=== PATIENT | female | born 1975 | race Caucasian/White ===

== ENCOUNTER 2018-10-08 13:02 | Emergency (ER) | payer BC ==
[2018-10-08 13:46] LABS: Absolute Lymphocytes (CBC) 2.3 K/uL (0.7-4.9); Absolute Monocytes 0.4 K/uL (0.1-1.3); Absolute Neutrophil 4.3 K/uL (1.8-8.0); Basophils % 0.7 % (0-1.3); Eosinophils % 1.9 % (0-4.4); Hematocrit 38.4 % (36.0-45.0); Lymphocytes % 31.7 % (15.3-44.8); MCH 29.3 pg (27.0-35.0); MCV 85.7 fL (80-100); Monocytes % 5.1 % (3.3-12.3); RBC Red Blood Cell Count 4.49 M/uL (3.86-4.86)
[2018-10-08] MEDS ORDERED: NA CHLORIDE 0.9% 1,000 ML ONE (13:47)
--- NOTE | 2018-10-08 13:47 | RAD REPORT ---
EXAM DESCRIPTION: CT - Head Brain Wo Cont - 10/08/2018 1:38 pm CLINICAL HISTORY: CONFUSED Drowsiness COMPARISON: No comparisons TECHNIQUE: All CT scans are performed using dose optimization technique as appropriate and may inclu de automated exposure control or mA/KV adjustment according to patient size. FINDINGS: No intracranial hemorrhage, hydrocephalus or extra-axial fluid collection.No areas of brai n edema or evidence of midline shift. The paranasal sinuses and mastoids are clear. The calvarium is intact. IMPRESSION: No acute intracranial abnormality.
[2018-10-08 13:58] LABS: ALT/SGPT 24 U/L (12-78); AST/SGOT 14 U/L (15-37); Albumin 3.6 g/dL (3.4-5.0); Alkaline Phosphatase 72 U/L (45-117); BUN Blood Urea Nitrogen 10 mg/dL (7-18); Bicarbonate 29 mmol/L (21-32); Bilirubin Direct < 0.1 mg/dL (0-0.2); Bilirubin Total 0.2 mg/dL (0.2-1.0); Creatine Phosphokinase 73 U/L (26-192); Glucose Level 97 mg/dL (74-106); Potassium 3.9 mmol/L (3.5-5.1); Protein, Total 6.6 g/dL (6.4-8.2); Sodium Level 144 mmol/L (136-145)
[2018-10-08 14:18] LABS: Blood Gas Oxyhemoglobin 95.9 % (94-97); Blood O2 Saturation 97.6 % (92-98.5)
[2018-10-08 14:41] LABS: Barbiturates NEGATIVE (NEGATIVE); Benzodiazepines NEGATIVE (NEGATIVE); Cocaine NEGATIVE (NEGATIVE); METHAMPHETAM NEGATIVE (NEGATIVE); Methadone NEGATIVE (NEGATIVE); Opiates NEGATIVE (NEGATIVE); Phencyclidine NEGATIVE (NEGATIVE); THC Cannibis NEGATIVE (NEGATIVE)
[2018-10-08 14:49] LABS: Urine Bacteria NONE SEEN /HPF (<20); Urine RBC NONE SEEN /HPF (NONE SEEN)
[2018-10-08 14:50] LABS: Urine Culture Reflex Order NOT NEEDED
[2018-10-08 14:56] LABS: Urine Blood TRACE (NEG); Urine Glucose NEGATIVE (NEG); Urine Protein 1+ (NEG); Urine Specific Gravity 1.015 (1.005-1.030); Urine pH 8.5 (5.0-7.0)
--- NOTE | 2018-10-08 15:49 | EDPHYS ---
Physician Documentation [facility] Name: February Age: 43 yrs Sex: Female : 1975 Arrival Date: 10/08/2018 Time: 13:04 Bed 26 Private MD: None, None ED Physician Andrae Edwards HPI: 10/08 17:04 This 43 yrs old Female presents to ER via Wheelchair with complaints of snw Diabetic, Altered Mental Status. 17:04 The patient presents with confusion, decreased responsiveness, trouble concentrating. snw Onset: The symptoms/episode began/occurred suddenly, just prior to arrival. Possible causes: low blood sugar, has "trouble with low blood sugar". Associated signs and symptoms: Pertinent positives: ataxia, confusion, gait abnormality, lightheadedness, weakness. Current symptoms: In the emergency department the patient's symptoms have resolved, the patient is alert and fully oriented, has normal speech, has normal responsiveness. Patient's baseline: Neuro: alert and fully oriented, Motor: no deficits, Ambulation: walks without assistance. The patient has experienced similar episodes in the past. The patient has not recently seen a physician. recent move to [facility], no family, no friends, no PCP yet.. 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 - Ebola Screening: : Patient negative for fever greater than or equal to 101.5 degrees Fahrenheit, and additional compatible Ebola Virus Disease symptoms Patient denies exposure to infectious person Patient denies travel to an Ebola-affected area in the 21 days before illness onset No symptoms or risks identified at this time. - Social history:: Smoking status: Patient/guardian denies using tobacco. ROS: 17:04 Eyes: Negative for injury, pain, redness, and discharge, ENT: Negative for injury, snw pain, and discharge, Neck: Negative for injury, pain, and swelling, Cardiovascular: Negative for chest pain, palpitations, and edema, Respiratory: Negative for shortness of breath, cough, wheezing, and pleuritic chest pain, Abdomen/GI: Negative for abdominal pain, nausea, vomiting, diarrhea, and constipation, Back: Negative for injury and pain, : Negative for injury, bleeding, discharge, and swelling, MS/Extremity: Negative for injury and deformity, Skin: Negative for injury, rash, and discoloration. 17:04 Constitutional: Positive for body aches, fatigue, malaise, poor PO intake. 17:04 Neuro: Positive for altered mental status, gait disturbance, weakness. Exam: 16:59 Head/Face: Normocephalic, atraumatic. Eyes: Pupils equal round and reactive to light, snw extra-ocular motions intact. Lids and lashes normal. Conjunctiva and sclera are non-icteric and not injected. Cornea within normal limits. Periorbital areas with no swelling, redness, or edema. ENT: Nares patent. No nasal discharge, no septal abnormalities noted. Tympanic membranes are normal and external auditory canals are clear. Oropharynx with no redness, swelling, or masses, exudates, or evidence of obstruction, uvula midline. Mucous membranes moist. Neck: Trachea midline, no thyromegaly or masses palpated, and no cervical lymphadenopathy. Supple, full range of motion without nuchal rigidity, or vertebral point tenderness. No Meningismus. Chest/axilla: Normal chest wall appearance and motion. Nontender with no deformity. No lesions are appreciated. Cardiovascular: Regular rate and rhythm with a normal S1 and S2. No gallops, murmurs, or rubs. Normal PMI, no JVD. No pulse deficits. Respiratory: Lungs have equal breath sounds bilaterally, clear to auscultation and percussion. No rales, rhonchi or wheezes noted. No increased work of breathing, no retractions or nasal flaring. Abdomen/GI: Soft, non-tender, with normal bowel sounds. No distension or tympany. No guarding or rebound. No evidence of tenderness throughout. Back: No spinal tenderness. No costovertebral tenderness. Full range of motion. Skin: Warm, dry with normal turgor. Normal color with no rashes, no lesions, and no evidence of cellulitis. MS/ Extremity: Pulses equal, no cyanosis. Neurovascular intact. Full, normal range of motion. 16:59 Constitutional: The patient appears awake, anxious, listless, unkempt. 16:59 Neuro: Orientation: to person, Gait: needs assistance, w/c, seizure activity, is not displayed by the patient, Abnormal movements: there are no abnormal movements. 16:59 Special observations: Pt with IVF, calm environment, began to answer questions, oriented x 3, states she has had similar episodes in the past, feels this was a panic attack. Pt denies SI, HI. Calm, cooperative. Pt states she is safe at home and is feeling back to normal.. Vital Signs: 13:32 BP 153 / 87; Pulse 56; Resp 14 S; Temp 97.8(O); Pulse Ox 97% on R/A; Weight 83.91 kg; iw Height 5 ft. 7 in. (170.18 cm); Pain 0/10; 14:10 BP 158 / 96; Pulse 63; Resp 16 S; Pulse Ox 100% on R/A; Pain 0/10; iw 15:39 BP 158 / 98; Pulse 64; Resp 16; Pulse Ox 100% on R/A; Pain 0/10; iw 13:32 Body Mass Index 28.97 (83.91 kg, 170.18 cm) iw [place] Coma Score: 16:59 Eye Response: spontaneous(4). Verbal Response: oriented(5). Motor Response: obeys snw commands(6). Total: 15. MDM: 13:33 Patient medically screened. ailyn 17:03 Data reviewed: vital signs, nurses notes. Data interpreted: Pulse oximetry: on room air snw is 100 %. Interpretation: normal. Counseling: I had a detailed discussion with the patient and/or guardian regarding: the historical points, exam findings, and any diagnostic results supporting the discharge/admit diagnosis, the presence of at least one elevated blood pressure reading (>120/80) during this emergency department visit, lab results, radiology results, the need for outpatient follow up, to return to the emergency department if symptoms worsen or persist or if there are any questions or concerns that arise at home. Response to treatment: the patient's symptoms have resolved after treatment, and as a result, I will discharge patient. Special discussion: Based on the history and exam findings, there is no indication for further emergent testing or inpatient evaluation. I discussed with the patient/guardian the need to see the primary care provider for further evaluation of the symptoms. I discussed with the patient/guardian the need to see the psychiatrist for further evaluation of the symptoms. 10/08 13:27 Order name: ABG [facility] 10/08 13:27 Order name: Urine Drug Screen; Complete Time: 14:51 w 10/08 13:27 Order name: Urine Culture [facility] 10/08 13:27 Order name: Urine Microscopic Only; Complete Time: 14:51 [facility] 10/08 13:27 Order name: Basic Metabolic Panel; Complete Time: 14:10 [facility] 10/08 13:27 Order name: CBC with Diff; Complete Time: 13:53 w 10/08 13:27 Order name: CPK; Complete Time: 14:10 w 10/08 13:27 Order name: Lactate; Complete Time: 15:47 [facility] 10/08 13:27 Order name: LFT's; Complete Time: 14:10 [facility] 10/08 13:27 Order name: Procalcitonin; Complete Time: 14:51 [facility] 10/08 13:31 Order name: Osmolality, Serum; Complete Time: 15:47 [facility] 10/08 14:42 Order name: Urine Dipstick--Ancillary (enter results); Complete Time: 14:57 10/08 14:42 Order name: Urine --Ancillary (enter results); Complete Time: 14:57 10/08 13:27 Order name: Cath; Complete Time: 14:11 [facility] 10/08 13:27 Order name: Urine Test (obtain specimen); Complete Time: 14:11 [facility] 10/08 13:27 Order name: Urine Dipstick-Ancillary (obtain specimen); Complete Time: 14:11 [facility] 10/08 13:27 Order name: CT Head Brain wo Cont; Complete Time: 13:52 [facility] 10/08 13:27 Order name: Accucheck; Complete Time: 13:38 [facility] 10/08 13:27 Order name: Cardiac monitoring; Complete Time: 14:11 [facility] 10/08 13:27 Order name: EKG - Nurse/Tech; Complete Time: 14:32 [facility] 10/08 13:27 Order name: IV Saline Lock - Large Bore; Complete Time: 13:51 [facility] 10/08 13:27 Order name: Labs collected and sent; Complete Time: 13:51 [facility] 10/08 13:27 Order name: O2 Per Protocol; Complete Time: 13:51 snw 10/08 13:27 Order name: O2 Sat Monitoring; Complete Time: 13:51 snw 10/08 14:34 Order name: Labs - recollect needed; Complete Time: 15:13 bd 10/08 15:01 Order name: EKG Electrocardiogram EDMS Administered Medications: 14:17 Drug: NS 0.9% (30 ml/kg) 30 ml/kg Route: IV; Rate: bolus; Site: right antecubital; Point of Care Testing: Blood Glucose: 13:32 Blood Glucose: 97 mg/dL; iw Ranges: Critical Glucose Levels:Adult <50 mg/dl or >400 mg/dl <40 mg/dl or >180 mg/dl Disposition: 10/08/18 15:48 Discharged to Home. Impression: Altered mental status, unspecified, Panic disorder [episodic paroxysmal anxiety] without agoraphobia. - Condition is Stable. - Discharge Instructions: Panic Attacks, Stress and Stress Management, Generalized Anxiety Disorder. - Medication Reconciliation Form, Thank You Letter, Antibiotic Education, Prescription Opioid Use form. - Follow up: Private Physician; When: 1 week; Reason: Recheck today's complaints, Continuance of care, Re-evaluation by your physician. Follow up: Emergency Department; When: As needed; Reason: Worsening of condition. Addendum: 10/13/2018 06:23 Co-signature as Attending Physician, Andrae Edwards MD I agree with the assessment and c davey plan of care. PA/ANESTHESIOLOGY CRNA's history reviewed, patient interviewed, and examined. Signatures: Dispatcher [employer] EDLexii Russell Corey, MD MD cha Therrien, Shelly, PARK SERVICES SPECIALIST-C PARK SERVICES SPECIALIST-Csnw Soraida Astudillo, RN RN iw Corrections: (The following items were deleted from the chart) 10/08 15:04 13:32 Home Meds: None; iw iw 15:04 13:32 PMHx: None; iw iw 16:09 15:48 10/08/2018 15:48 Discharged to Home. Impression: Altered mental status, iw unspecified; Panic disorder [episodic paroxysmal anxiety] without agoraphobia. Condition is Stable. Forms are Medication Reconciliation Form, Thank You Letter, Antibiotic Education, Prescription Opioid Use. Follow up: Private Physician; When: 1 week; Reason: Recheck today's complaints, Continuance of care, Re-evaluation by your physician. Follow up: Emergency Department; When: As needed; Reason: Worsening of condition. snw
--- NOTE | 2018-10-08 15:49 | ER ---
Nurse's Notes [facility] Name: Lisa Dinh Age: 43 yrs Sex: Female : 1975 Arrival Date: 10/08/2018 Time: 13:04 Bed 26 Private MD: None, None Diagnosis: Altered mental status, unspecified;Panic disorder [episodic paroxysmal anxiety] without agoraphobia Presentation: 10/08 13:27 Presenting complaint: states: pt has had episodes of AMS, last episode was 3-4 iw months ago, pt was diagnosed with diabetes and was placed on metformin at that time but has been off for 2 months because it was making her BS fluctuate too much, pt went and ran errands this morning and when she came back home she was very drowsy and not acting like her normal self, denies ETH or drug use, FS=97, pt oriented to person and place. Transition of care: patient was not received from another setting of care. Onset of symptoms was October 08, 2018. Risk Assessment: Do you want to hurt yourself or someone else? Patient reports no desire to harm self or others. Initial Sepsis Screen: Does the patient meet any 2 criteria? No. Patient's initial sepsis screen is negative. Does the patient have a suspected source of infection? No. Patient's initial sepsis screen is negative. Care prior to arrival: None. 13:27 Method Of Arrival: Wheelchair iw 13:27 Acuity: CAROL 2 iw Triage Assessment: 16:00 General: Appears in no apparent distress. iw 16:00 General: Behavior is calm, cooperative. 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 - Ebola Screening: : Patient negative for fever greater than or equal to 101.5 degrees Fahrenheit, and additional compatible Ebola Virus Disease symptoms Patient denies exposure to infectious person Patient denies travel to an Ebola-affected area in the 21 days before illness onset No symptoms or risks identified at this time. - Social history:: Smoking status: Patient/guardian denies using tobacco. Screenin:13 Abuse screen: Denies threats or abuse. Denies injuries from another. Nutritional iw screening: No deficits noted. Tuberculosis screening: No symptoms or risk factors identified. Fall Risk IV access (20 points). Assessment: 13:50 General: Appears well developed, Behavior is drowsy. Pain: Denies pain. Neuro: Oriented iw to person, place, Mock Up Builder are weak bilaterally Moves all extremities. Speech is slurred, Facial symmetry appears normal. Cardiovascular: Capillary refill < 3 seconds in bilateral fingers Patient's skin is warm and dry. Respiratory: Respiratory effort is even, unlabored, Respiratory pattern is regular, symmetrical. Derm: Skin is intact, is healthy with good turgor. Musculoskeletal: Range of motion: intact in all extremities. 14:12 Reassessment: Patient appears in no apparent distress at this time. pt appears tearful, iw when asked if she is upset about something pt states "No, I'm just upset he brought me here", pt still appears drowsy. 15:01 Reassessment: Patient appears in no apparent distress at this time. Patient and/or iw family updated on plan of care and expected duration. Pain level reassessed. Patient is alert, oriented x 3, equal unlabored respirations, skin warm/dry/pink. pt states that she has a history of anxiety, is currently taking escitalopram daily, has been feeling overwhelmed lately and she feels like she had a panic attack and then couldn't stop the feeling, pt feeling better now but still feels a bit anxious and tearful the more we speak about it Patient states feeling better. Patient states symptoms have improved. 15:38 Reassessment: Patient appears in no apparent distress at this time. Patient and/or iw family updated on plan of care and expected duration. Pain level reassessed. Patient is alert, oriented x 3, equal unlabored respirations, skin warm/dry/pink. Vital Signs: 13:32 BP 153 / 87; Pulse 56; Resp 14 S; Temp 97.8(O); Pulse Ox 97% on R/A; Weight 83.91 kg; iw Height 5 ft. 7 in. (170.18 cm); Pain 0/10; 14:10 BP 158 / 96; Pulse 63; Resp 16 S; Pulse Ox 100% on R/A; Pain 0/10; iw 15:39 BP 158 / 98; Pulse 64; Resp 16; Pulse Ox 100% on R/A; Pain 0/10; iw 13:32 Body Mass Index 28.97 (83.91 kg, 170.18 cm) iw [place] Coma Score: 16:59 Eye Response: spontaneous(4). Verbal Response: oriented(5). Motor Response: obeys snw commands(6). Total: 15. ED Course: 13:04 Patient arrived in ED. mr 13:05 None, None is Private Physician. mr 13:26 Soraida Astudillo, RN is Primary Nurse. iw 13:29 [facility]C [facility]. snw 13:29 Andrae Edwards MD is Attending Physician. snw 13:31 Triage completed. iw 13:32 Arm band placed on. iw 13:33 Inserted saline lock: 20 gauge in right antecubital area, using aseptic technique. iw Blood collected. IV inserted by JOSE Mclean. 13:39 CT Head Brain wo Cont In Process Unspecified. EDMS 13:50 Patient has correct armband on for positive identification. iw 13:50 Straight cath inserted, using sterile technique, 16 Fr. Returned clear yellow urine. iw Patient tolerated well. Inserted saline lock: 22 gauge in left forearm, using aseptic technique. 14:33 EKG done, by hazardous materials waste technician. reviewed by Lisy RIVERA. at1 16:08 No provider procedures requiring assistance completed. IV discontinued, intact, iw bleeding controlled, No redness/swelling at site. Pressure dressing applied. Administered Medications: 14:17 Drug: NS 0.9% (30 ml/kg) 30 ml/kg Route: IV; Rate: bolus; Site: right antecubital; iw Point of Care Testing: Blood Glucose: 13:32 Blood Glucose: 97 mg/dL; iw Ranges: Outcome: 15:48 Discharge ordered by MD. snw 16:08 Discharged to home ambulatory, with family. iw 16:08 Condition: good 16:08 Discharge instructions given to patient, family, Instructed on discharge instructions, follow up and referral plans. Demonstrated understanding of instructions, follow-up care. 16:09 Patient left the ED. iw Signatures: Dispatcher [employer] EDWV Lisy Bhatt FNP-C FNP-Donato TsangKristi Soraida Astudillo RN RN Silvana Turk, lighting engineer EKG Tat1 Corrections: (The following items were deleted from the chart) 14:12 13:32 BP 153 / 87; Pulse 56bpm; Resp 14bpm; Spontaneous; Pulse Ox 97% RA; Temp 97.8F iw Oral; Pain 0/10; iw 15: 13:32 Home Meds: None; iw iw 15: 13:32 PMHx: None; iw iw
--- NOTE | 2018-10-08 20:55 | EKG ---
Test Date: 2018-10-08 Test Time: 14:30:37 Container Washer Machine: BERNARD MEASUREMENT RESULTS: Intervals: Rate: 65 IA: 156 QRSD: 88 QT: 418 QTc: 434 [place]: P: 17 IA: 156 QRS: 5 T: 24 INTERPRETIVE STATEMENTS: Normal sinus rhythm Normal ECG No previous ECG available for comparison Electronically Signed On 10-08-18 20:54:43 [employer]YSTER SHIPPER by Deion Esteves
== END 2018-10-08 16:09 | disposition home or self-care (01) ==
LOC: ER 13:02
DX: F41.0 Panic disorder [episodic paroxysmal anxiety] (principal); F32.9 Major depressive disorder, single episode, unspecified; F41.9 Anxiety disorder, unspecified
CPT/HCPCS: 36415; 51702; 70450; 80048; 80076; 80307; 81003; 81015; 81025; 82550; 82805; 82962; 83605; 83930; 84145; 85025; 87086; 87088; 93005; 96374; 99284; J7030

== ENCOUNTER 2019-02-26 10:29 | Emergency (ER) | payer BC ==
[2019-02-26 11:21] LABS: Absolute Lymphocytes (CBC) 1.4 K/uL (0.7-4.9); Absolute Monocytes 0.2 K/uL (0.1-1.3); Absolute Neutrophil 4.6 K/uL (1.8-8.0); Basophils % 0.6 % (0-1.3); Eosinophils % 1.4 % (0-4.4); Hematocrit 42.9 % (36.0-45.0); Lymphocytes % 22.1 % (15.3-44.8); MPV 8.7 fL (7.6-11.3); RBC Red Blood Cell Count 4.93 M/uL (3.86-4.86)
[2019-02-26 11:41] LABS: ALT/SGPT 28 U/L (12-78); AST/SGOT 18 U/L (15-37); Albumin 3.8 g/dL (3.4-5.0); Alkaline Phosphatase 65 U/L (45-117); BUN Blood Urea Nitrogen 13 mg/dL (7-18); Bicarbonate 31 mmol/L (21-32); Bilirubin Total 0.3 mg/dL (0.2-1.0); Glucose Level 106 mg/dL (74-106); Lipase 179 U/L (73-393); Potassium 3.8 mmol/L (3.5-5.1); Sodium Level 144 mmol/L (136-145); Troponin (Emerg Dept Use Only) < 0.02 ng/mL (0.0-0.045)
--- NOTE | 2019-02-26 12:37 | RAD REPORT ---
EXAM DESCRIPTION: CT - Abdomen Pelvis W Contrast - 02/26/2019 12:23 pm CLINICAL HISTORY: Abdominal pain/left-sided abdominal pain COMPARISON: none. TECHNIQUE: Computed axial tomography of the abdomen pelvis was obtained. 100 cc Isovue-300 was admin istered intravenously. Oral contrast was not requested which limits evaluation of bowel. All CT scans are performed using dose optimization technique as appropriate and may include automated exposure control or mA/KV adjustment according to patient size. FINDINGS: The liver, spleen, pancreas, adrenal and kidneys appear unremarkable. There is no evidence of diverticulitis. The appendix is normal A hysterectomy has been performed. An adnexal mass is not noted IMPRESSION: No acute abnormality is displayed.
--- NOTE | 2019-02-26 13:02 | EDPHYS ---
Physician Documentation [facility] Name: Lisa Dinh Age: 43 yrs Sex: Female : 1975 Arrival Date: 02/26/2019 Time: 10:31 Bed 13 Private MD: Ryder Scott E ED Physician Davie Lorenzo HPI: 02/26 11:06 This 43 yrs old Female presents to ER via Ambulatory with complaints of jmm Passed Out Prior To Arrival. 11:06 The patient has experienced syncope, became unresponsive. Onset: The symptoms/episode jmm began/occurred gradually, 5 month(s) ago. Duration: The patient has had multiple episodes. This is a 43 year old female with a history of anxiety and depression that presents to the ED with complaints of multiple syncopal episodes since September. states the episodes will last up to 5 minutes in which he has difficulty waking the patient up. Episodes are non exertional. Patient was initially evaluated in the ED. Patient has not followed up with neurology. Patient is currently under the care of her PCP whom is in the process of Neurology referral. Patient also complaints of 2 weeks of sharp left sided abdominal pain with multiple episodes of vomiting. Patient is 8 years s/p gastric sleeve. . 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 - Social history:: Smoking status: Patient uses tobacco products, denies chronic smoking, but will smoke occasionally. - Ebola Screening: : No symptoms or risks identified at this time. ROS: 11:06 Constitutional: Negative for fever, chills, and weight loss, Cardiovascular: Negative jmm for chest pain, palpitations, and edema, Respiratory: Negative for shortness of breath, cough, wheezing, and pleuritic chest pain. 11:06 Abdomen/GI: Positive for abdominal pain, nausea and vomiting. 11:06 Neuro: Positive for syncope. 11:06 All other systems are negative. Exam: 11:06 Constitutional: This is a well developed, well nourished patient who is awake, alert, jmm and in no acute distress. Head/Face: atraumatic. Eyes: EOMI, no conjunctival erythema appreciated ENT: Moist Mucus Membranes Neck: Trachea midline, Supple Chest/axilla: Normal chest wall appearance and motion. Cardiovascular: Regular rate and rhythm. No edema appreciated Respiratory: Normal respirations, no respiratory distress appreciated Back: Normal ROM 11:06 Abdomen/GI: Inspection: abdomen appears normal, Bowel sounds: normal, Palpation: soft, mild abdominal tenderness, in the left upper quadrant and left lower quadrant. 11:06 Back: ROM is normal. 11:06 Musculoskeletal/extremity: ROM: intact in all extremities. 11:06 Skin: Appearance: Color: normal in color. 11:06 Neuro: Orientation: is normal, Mentation: is normal, Memory: is normal. 11:06 Psych: Behavior/mood is pleasant, cooperative. 11:14 ECG was reviewed by the Attending Physician. [facility] Vital Signs: 10:37 BP 136 / 80; Pulse 73; Resp 18; Temp 98.2; Pulse Ox 98% ; Weight 84.82 kg; Height 5 ft. sv 8 in. (172.72 cm); Pain 0/10; 11:22 BP 128 / 83; Pulse 73; Resp 17; Pulse Ox 98% on R/A; rb1 12:22 BP 150 / 84; Pulse 67; Resp 16; Pulse Ox 100% ; rb1 10:37 Body Mass Index 28.43 (84.82 kg, 172.72 cm) sv MDM: 10:[address] [facility] 12:58 Data reviewed: vital signs, nurses notes, lab test result(s), EKG, radiologic studies, [facility] CT scan. Counseling: I had a detailed discussion with the patient and/or guardian regarding: the historical points, exam findings, and any diagnostic results supporting the discharge/admit diagnosis, radiology results, the need for outpatient follow up, to return to the emergency department if symptoms worsen or persist or if there are any questions or concerns that arise at home. ED course: No seizure like activity observed in the ED. Due to concerns for seizures, I discussed the patient with Dr. Long whom will follow up with the patient in clinic next week. Advised to prescribe low dose keppra. Ct of abdomen is negative. I advised the patient to follow up with GI for further evaluation. Patient was otherwise given strict return precautions. . 02/26 10:56 Order name: CBC with Diff; Complete Time: 11:[address] [facility] 02/26 10:56 Order name: CMP; Complete Time: 11:[address] [facility] 02/26 10:56 Order name: Lipase; Complete Time: 11:[address] [facility] 02/26 10:56 Order name: Troponin (emerg Dept Use Only); Complete Time: 11:[address] [facility] 02/26 11:03 Order name: CT Abd/Pelvis - W/Contrast; Complete Time: 12:[address] [facility] 02/26 11:04 Order name: EKG Electrocardiogram; Complete Time: 11:05 [facility] 02/26 10:56 Order name: Saline Lock; Complete Time: 12:[address] [facility] 02/26 10:56 Order name: EKG - Nurse/Tech; Complete Time: 11:[address] [facility] EC:14 Rate is 79 beats/min. Rhythm is regular. QRS [place] is Normal. MT interval is normal. QRS jmm interval is normal. QT interval is normal. No Q waves. T waves are Normal. No ST changes noted. Administered Medications: No medications were administered Disposition: 19:03 Co-signature as Attending Physician, Davie Lorenzo MD. rn Disposition: 02/26/19 13:01 Discharged to Home. Impression: Generalized abdominal pain, Syncope and collapse. - Condition is Stable. - Discharge Instructions: Abdominal Pain, Adult, Near-Syncope, Seizure, Adult. - Prescriptions for Keppra 250 mg Oral tablet - take 1 tablet by ORAL route At bedtime; 30 tablet. - Medication Reconciliation Form, Thank You Letter, Antibiotic Education, Prescription Opioid Use, Work release form form. - Follow up: Ryder Sy MD; When: 2 - 3 days; Reason: Recheck today's complaints, Continuance of care, Re-evaluation by your physician. Follow up: Taras Long MD; When: 2 - 3 days; Reason: Recheck today's complaints, Continuance of care, Re-evaluation by your physician, Call next week to set up appointment. Signatures: Dispatcher [employer] Leah Carey RN RN sv Mickail, Joel, PA PA Davie Giles MD MD rn Baxter, Heather, RN RN Corrections: (The following items were deleted from the chart) 13:19 13:01 02/26/2019 13:01 Discharged to Home. Impression: Generalized abdominal pain; hb Syncope and collapse. Condition is Stable. Forms are Medication Reconciliation Form, Thank You Letter, Antibiotic Education, Prescription Opioid Use. Follow up: Ryder Sy; When: 2 - 3 days; Reason: Recheck today's complaints, Continuance of care, Re-evaluation by your physician. Follow up: Taras Long; When: 2 - 3 days; Reason: Recheck today's complaints, Continuance of care, Re-evaluation by your physician, Call next week to set up appointment. teodoro
--- NOTE | 2019-02-26 13:02 | ER ---
Nurse's Notes [facility] Name: Lisa Tao Age: 43 yrs Sex: Female : 1975 Arrival Date: 02/26/2019 Time: 10:31 Bed 13 Private MD: Ryder Scott E Diagnosis: Generalized abdominal pain;Syncope and collapse Presentation: 02/26 10:34 Presenting complaint: Patient states: "I can be at work or at home and I just fall sv asleep easily, I don't feel like I'm passing out I'm just fatigued. This has been going on for a while and they told me I needed to f/u with a neurologist. I had weight loss surgery last year and I'm not diabetic anymore. I also am very emotional and I'm on Lexapro but I can cry at anything." Was seen here recently for these complaints. Transition of care: patient was not received from another setting of care. Onset of symptoms is unknown. Care prior to arrival: None. 10:34 Method Of Arrival: Ambulatory sv 10:34 Acuity: CAROL 3 sv 10:37 Note "I've also been having a sharp pain to my left side.". sv 10:40 Risk Assessment: Do you want to hurt yourself or someone else? Patient reports no rb1 desire to harm self or others. Initial Sepsis Screen: Does the patient meet any 2 criteria? No. Patient's initial sepsis screen is negative. Does the patient have a suspected source of infection? No. Patient's initial sepsis screen is negative. 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 - Social history:: Smoking status: Patient uses tobacco products, denies chronic smoking, but will smoke occasionally. - Ebola Screening: : No symptoms or risks identified at this time. Screenin:40 Abuse screen: Denies threats or abuse. Nutritional screening: No deficits noted. rb1 Tuberculosis screening: No symptoms or risk factors identified. Fall Risk None identified. Assessment: 10:40 General: Appears in no apparent distress. comfortable, Behavior is calm, cooperative. rb1 General: Reports fatigue for. Pain: Denies pain. Neuro: Level of Consciousness is awake, alert, obeys commands, Oriented to person, place, time, situation. Cardiovascular: Capillary refill < 3 seconds is brisk in bilateral fingers. Respiratory: Airway is patent Respiratory effort is even, unlabored, Respiratory pattern is regular, symmetrical. GI: Reports nausea, vomiting. : No signs and/or symptoms were reported regarding the genitourinary system. Derm: Skin is pink, warm \\T\\ dry. Musculoskeletal: Range of motion: intact in all extremities. 11:40 Reassessment: Patient appears in no apparent distress at this time. No changes from rb1 previously documented assessment. 12:40 Reassessment: Patient appears in no apparent distress at this time. Patient and/or rb1 family updated on plan of care and expected duration. Pain level reassessed. Patient is alert, oriented x 3, equal unlabored respirations, skin warm/dry/pink. 12:48 Reassessment: Provider at bedside. rb1 Vital Signs: 10:37 BP 136 / 80; Pulse 73; Resp 18; Temp 98.2; Pulse Ox 98% ; Weight 84.82 kg; Height 5 ft. sv 8 in. (172.72 cm); Pain 0/10; 11:22 BP 128 / 83; Pulse 73; Resp 17; Pulse Ox 98% on R/A; rb1 12:22 BP 150 / 84; Pulse 67; Resp 16; Pulse Ox 100% ; rb1 10:37 Body Mass Index 28.43 (84.82 kg, 172.72 cm) sv ED Course: 10:31 Patient arrived in ED. as 10:32 Ryder Scott MD is Private Physician. as 10:36 Triage completed. sv 10:37 Arm band placed on. sv 10:38 K[facility]zymanski [facility] 10:38 Davie Lorenzo MD is Attending Physician. jmm 10:40 Patient has correct armband on for positive identification. Call light in reach. Side rb1 rails up X 1. Pulse ox on. NIBP on. 10:50 Jada Bhakta, RN is Primary Nurse. rb1 11:01 EKG done, by molding process technician. reviewed by Kranthi POE. sm3 11:05 Radiology exam delayed due to lab results not completed at this time. (BUN/Creatinine). vr 11:15 Inserted saline lock: 20 gauge in right antecubital area, using aseptic technique. rb1 Blood collected. 12:23 CT Abd/Pelvis - W/Contrast In Process Unspecified. EDMS 13:00 Ryder Sy MD is Referral Physician. jmm 13:01 Taras Long MD is Referral Physician. [facility] 13:18 No provider procedures requiring assistance completed. IV discontinued, intact, hb bleeding controlled, No redness/swelling at site. Pressure dressing applied. Administered Medications: No medications were administered Outcome: 13:01 Discharge ordered by MD. m 13:18 Discharged to home ambulatory, with significant other. hb 13:18 Condition: stable 13:18 Discharge instructions given to patient, significant other, Instructed on discharge instructions, follow up and referral plans. medication usage, Demonstrated understanding of instructions, follow-up care, medications, Prescriptions given X 1. 13:19 Patient left the ED. hb Signatures: Dispatcher [employer] EDMO Leah Yeboah, RN RN Kranthi Fung PA PA Ana Dozier Victoria vr Barber, Rebecca, RN RN rb1 Keyla Ho RN RN hb Montes, Shakira 3
--- NOTE | 2019-02-26 17:15 | EKG ---
Test Date: 2019-02-26 Test Time: 10:55:23 Rn Cvicu: BERNARD MEASUREMENT RESULTS: Intervals: Rate: 79 WI: 146 QRSD: 88 QT: 378 QTc: 433 [place]: P: 31 WI: 146 QRS: 28 T: 11 INTERPRETIVE STATEMENTS: Normal sinus rhythm Normal ECG Compared to ECG 10/08/2018 14:30:37 No significant changes Electronically Signed On 02-26-19 17:14:39 CDT by Deion Esteves
== END 2019-02-26 13:19 | disposition home or self-care (01) ==
LOC: ER 10:29
DX: R55 Syncope and collapse (principal); R10.9 Unspecified abdominal pain; F41.9 Anxiety disorder, unspecified; F32.9 Major depressive disorder, single episode, unspecified; Z72.0 Tobacco use
CPT/HCPCS: 36415; 74177; 80053; 83690; 84484; 85025; 93005; 99284; Q9967

== ENCOUNTER 2019-02-28 18:09 | Emergency (ER) | payer BC ==
[2019-02-28 18:59] LABS: Absolute Lymphocytes (CBC) 1.4 K/uL (0.7-4.9); Absolute Monocytes 0.4 K/uL (0.1-1.3); Absolute Neutrophil 6.2 K/uL (1.8-8.0); Basophils % 0.5 % (0-1.3); Eosinophils % 2.3 % (0-4.4); Hematocrit 38.5 % (36.0-45.0); Lymphocytes % 16.8 % (15.3-44.8); MPV 8.7 fL (7.6-11.3); Monocytes % 4.4 % (3.3-12.3); RBC Red Blood Cell Count 4.45 M/uL (3.86-4.86)
[2019-02-28 19:05] LABS: Protime INR 0.96
--- NOTE | 2019-02-28 19:18 | RAD REPORT ---
EXAM DESCRIPTION: CT - Head Brain Wo Cont - 02/28/2019 7:03 pm CLINICAL HISTORY: Confusion/alteration of awareness COMPARISON: None. TECHNIQUE: Computed axial tomography of the head was obtained. IV contrast was not requested. All CT scans are performed using dose optimization technique as appropriate and may include automated exposure control or mA/KV adjustment according to patient size. FINDINGS: An intracranial bleed is not seen . The ventricles are normal in caliber. No extra-axial fluid collection is noted. Fluid within the sinuses/ mastoids is not seen. IMPRESSION: No acute intracranial abnormality is seen. If patient's symptoms persist MRI of the bra in would be recommended.
[2019-02-28 19:21] LABS: ALT/SGPT 31 U/L (12-78); AST/SGOT 16 U/L (15-37); Albumin 3.4 g/dL (3.4-5.0); Alkaline Phosphatase 56 U/L (45-117); BUN Blood Urea Nitrogen 19 mg/dL (7-18); Bicarbonate 31 mmol/L (21-32); Bilirubin Direct < 0.1 mg/dL (0-0.2); Bilirubin Total 0.2 mg/dL (0.2-1.0); Glucose Level 127 mg/dL (74-106); Protein, Total 6.4 g/dL (6.4-8.2); Sodium Level 145 mmol/L (136-145)
[2019-02-28 20:09] LABS: Barbiturates NEGATIVE (NEGATIVE); Benzodiazepines NEGATIVE (NEGATIVE); Cocaine NEGATIVE (NEGATIVE); METHAMPHETAM NEGATIVE (NEGATIVE); Methadone NEGATIVE (NEGATIVE); Opiates NEGATIVE (NEGATIVE); Phencyclidine NEGATIVE (NEGATIVE); THC Cannibis NEGATIVE (NEGATIVE)
[2019-02-28 20:18] LABS: Urine Blood NEGATIVE (NEG); Urine Glucose NEGATIVE (NEG); Urine Protein 1+ (NEG); Urine Specific Gravity 1.015 (1.005-1.030); Urine pH 8.5 (5.0-7.0)
--- NOTE | 2019-02-28 20:29 | ER ---
Nurse's Notes [facility] [place] Name: Lisa Tao Age: 43 yrs Sex: Female : 1975 Arrival Date: 02/28/2019 Time: 18:12 Bed 7 Private MD: Diagnosis: Altered mental status, unspecified Presentation: 02/28 18:13 Presenting complaint: EMS states: EMS reports parents stated on scene that patient has ss had intermittent AMS such as the episode today for the past year. On arrival to patient's home, EMS noted patient to be unresponsive on the toilet, but suddenly became awake, but appeared drowsy. Narcan x1 given without response. Patient was seen in ER recently and diagnosed with near syncope and seizure. Transition of care: patient was not received from another setting of care. Onset of symptoms was February 28, 2019. Risk Assessment: Do you want to hurt yourself or someone else? Patient reports no desire to harm self or others. Initial Sepsis Screen: Does the patient meet any 2 criteria? No. Patient's initial sepsis screen is negative. Does the patient have a suspected source of infection? No. Patient's initial sepsis screen is negative. Care prior to arrival: Medication(s) given: NARCAN x1 given IV IV initiated. 20 GA, in the right antecubital area, Glucose check: 149. 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 - Social history:: Smoking status: unknown. - Ebola Screening: : Unable to complete screening because. Screenin:24 Abuse screen: unable to assess. Nutritional screening: No deficits noted. Tuberculosis aa5 screening: unable to assess . Fall Risk Secondary diagnosis (15 points) seizures, IV access (20 points). Mental Status- Overestimates/Forgets Limitations (15 pts.). Total Dick Fall Scale indicates High Risk Score (45 or more points). Fall prevention measures have been instituted. Side Rails Up X 2 Placed Close to Nursing Station. Assessment: 18:20 General: Appears comfortable, Behavior is drowsy. Pain: Denies pain. Neuro: Level of aa5 Consciousness is awake, obeys commands, confused, Oriented to person, place, Skylights Assembler are equal bilaterally Moves all extremities. Speech is normal, Facial symmetry appears normal, Pupils are PERRLA. Cardiovascular: Heart tones S1 S2 present Rhythm is regular. Respiratory: Airway is patent Respiratory effort is even, unlabored, Respiratory pattern is regular, symmetrical, Breath sounds are clear bilaterally. GI: Abdomen is round non-distended, Bowel sounds present X 4 quads. Abd is soft and non tender X 4 quads. : No signs and/or symptoms were reported regarding the genitourinary system. EENT: No signs and/or symptoms were reported regarding the EENT system. Derm: Skin is pink, warm \T\ dry. Musculoskeletal: Range of motion: intact in all extremities. 18:45 Reassessment: Patient and/or family updated on plan of care and expected duration. Pain aa5 level reassessed. Patient is alert, oriented x 3, equal unlabored respirations, skin warm/dry/pink. 20:36 Reassessment: Patient and/or family updated on plan of care and expected duration. Pain tl1 level reassessed. Patient is alert, oriented x 3, equal unlabored respirations, skin warm/dry/pink. Patient states feeling better. Patient states symptoms have improved. Vital Signs: 18:18 BP 116 / 77; Pulse 56; Resp 18; Temp 97.5(TE); Pulse Ox 99% on R/A; ss 19:18 BP 133 / 77; Pulse 67; Resp 19; Pulse Ox 100% ; Pain 0/10; tl1 20:36 BP 136 / 76; Pulse 72; Resp 16; Temp 97.8; Pulse Ox 100% ; Pain 0/10; tl1 [place] Coma Score: 19:18 Eye Response: spontaneous(4). Verbal Response: oriented(5). Motor Response: obeys jr8 commands(6). Total: 15. ED Course: 18:12 Patient arrived in ED. ss 18:17 Triage completed. ss 18:18 Arm band placed on right wrist. ss 18:20 Patient has correct armband on for positive identification. Placed in gown. Bed in low aa5 position. Call light in reach. Side rails up X2. quality assurance monitor on. Pulse ox on. NIBP on. 18:23 Augie Bates PA is PHCP. jr8 18:23 Gregory James MD is Attending Physician. jr8 18:23 Marissa Stanley, RN is Primary Nurse. aa5 18:25 Swelling noted to EMS 20 G to R AC after flushing with 5 cc NS. IV d/c'd catheter aa5 intact, dressing applied. 18:26 Inserted saline lock: 20 gauge in right antecubital area, using aseptic technique. aa5 18:45 Initial lab(s) drawn, by me, sent to lab. aa5 18:53 EKG done, by ED staff. kj1 19:02 Report given to JOSE Rascon. aa5 19:04 CT Head Brain wo Cont In Process Unspecified. EDMS 19:04 CT completed. Patient tolerated procedure well. Patient moved back from CT. bq 19:55 Primary Nurse role handed off by Marissa Stanley, JOSE ed1 20:09 Tarah Olea, JOSE is Primary Nurse. tl1 20:28 Taras Long MD is Referral Physician. jr8 20:36 No provider procedures requiring assistance completed. IV discontinued, intact, tl1 bleeding controlled, No redness/swelling at site. Pressure dressing applied. Administered Medications: No medications were administered Point of Care Testing: Blood Glucose: 18:21 Blood Glucose: 137 mg/dL; Ranges: Outcome: 20:29 Discharge ordered by . jr8 20:37 Discharged to home ambulatory, with family. tl1 20:37 Condition: good 20:37 Discharge instructions given to patient, family, Instructed on discharge instructions, follow up and referral plans. Demonstrated understanding of instructions, follow-up care. 20:37 Patient left the ED. tl1 Signatures: Dispatcher [employer] EDRI Sonam Dueñas Marissa Stanley, RN RN aa5 Maria Luisa Beckett RN RN Nicky Gamble RN RN ed1 Augie Bates PA PA jr8 Tarah Olea, RN RN tl1 Linda Nelson kj1
--- NOTE | 2019-02-28 20:30 | EDPHYS ---
Physician Documentation [facility] Name: Lisa Tao Age: 43 yrs Sex: Female : 1975 Arrival Date: 02/28/2019 Time: 18:12 Bed 7 Private MD: ED Physician Gregory James HPI: 02/28 19:18 This 43 yrs old Female presents to ER via EMS with complaints of Altered jr8 Mental Status. 19:18 The patient presents with confusion. Onset: The symptoms/episode began/occurred jr8 acutely, today. Possible causes: unknown. Associated signs and symptoms: Pertinent positives: sycope. Current symptoms: In the emergency department the patient's symptoms have improved, moderately, is less confused. Patient's baseline: Neuro: alert and fully oriented, Motor: no deficits, Ambulation: walks without assistance, Speech: normal. The patient has experienced similar episodes in the past, a few times. The patient has been recently seen by a physician:. of patient stated that she has had a few episodes of syncope and confusion in the past. A lot of times will appear tired and fatigued throughout the day and then fall asleep but is easily aroused and without confusion. When she has the syncope like symptoms stated that she is more altered. Patient alert to person, place, time upon arrival. Could not tell me what happened. Currently without any pain or any other s/s. Seen two days ago for similar symptoms but with abdominal discomfort as well . 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 - Social history:: Smoking status: unknown. - Ebola Screening: : Unable to complete screening because. ROS: 19:18 Eyes: Negative for injury, pain, redness, and discharge, ENT: Negative for injury, jr8 pain, and discharge, Neck: Negative for injury, pain, and swelling, Cardiovascular: Negative for chest pain, palpitations, and edema, Respiratory: Negative for shortness of breath, cough, wheezing, and pleuritic chest pain, Abdomen/GI: Negative for abdominal pain, nausea, vomiting, diarrhea, and constipation, Back: Negative for injury and pain, MS/Extremity: Negative for injury and deformity, Skin: Negative for injury, rash, and discoloration. 19:18 Neuro: Positive for altered mental status, syncope. Exam: 19:18 Eyes: Pupils equal round and reactive to light, extra-ocular motions intact. Lids and jr8 lashes normal. Conjunctiva and sclera are non-icteric and not injected. Cornea within normal limits. Periorbital areas with no swelling, redness, or edema. ENT: Nares patent. No nasal discharge, no septal abnormalities noted. Tympanic membranes are normal and external auditory canals are clear. Oropharynx with no redness, swelling, or masses, exudates, or evidence of obstruction, uvula midline. Mucous membranes moist. Neck: Trachea midline, no thyromegaly or masses palpated, and no cervical lymphadenopathy. Supple, full range of motion without nuchal rigidity, or vertebral point tenderness. No Meningismus. Cardiovascular: Regular rate and rhythm with a normal S1 and S2. No gallops, murmurs, or rubs. Normal PMI, no JVD. No pulse deficits. Respiratory: Lungs have equal breath sounds bilaterally, clear to auscultation and percussion. No rales, rhonchi or wheezes noted. No increased work of breathing, no retractions or nasal flaring. Abdomen/GI: Soft, non-tender, with normal bowel sounds. No distension or tympany. No guarding or rebound. No evidence of tenderness throughout. Back: No spinal tenderness. No costovertebral tenderness. Full range of motion. Skin: Warm, dry with normal turgor. Normal color with no rashes, no lesions, and no evidence of cellulitis. MS/ Extremity: Pulses equal, no cyanosis. Neurovascular intact. Full, normal range of motion. 19:18 Neuro: Orientation: to person, place \T\ time. Not oriented to situation, Mentation: able to follow commands, Memory: immediate memory is intact, remote memory is intact. recent memory is impaired, Cranial nerves: CN I not tested, CN II- XII are normal as tested, visual alanis are intact. extraocular movements are intact, Facial palsy and sensory deficits are absent. Speech is clear and appropriate. Tongue strength is normal, Cerebellar function: normal finger to nose testing, Motor: moves all fours, strength is normal, Sensation: no obvious gross deficits, seizure activity, is not displayed by the patient, Abnormal movements: there are no abnormal movements. Vital Signs: 18:18 BP 116 / 77; Pulse 56; Resp 18; Temp 97.5(TE); Pulse Ox 99% on R/A; ss 19:18 BP 133 / 77; Pulse 67; Resp 19; Pulse Ox 100% ; Pain 0/10; tl1 20:36 BP 136 / 76; Pulse 72; Resp 16; Temp 97.8; Pulse Ox 100% ; Pain 0/10; tl1 Hortencia Coma Score: 19:18 Eye Response: spontaneous(4). Verbal Response: oriented(5). Motor Response: obeys jr8 commands(6). Total: 15. MDM: 18:23 Patient medically screened. jr8 20:25 Data reviewed: vital signs, nurses notes, lab test result(s), EKG, radiologic studies, jr8 CT scan. Data interpreted: Pulse oximetry: on room air is 100 %. Interpretation: normal. Counseling: I had a detailed discussion with the patient and/or guardian regarding: the historical points, exam findings, and any diagnostic results supporting the discharge/admit diagnosis, lab results, radiology results, the need for outpatient follow up, a neurologist, to return to the emergency department if symptoms worsen or persist or if there are any questions or concerns that arise at home. Response to treatment: the patient's symptoms have resolved after treatment. ED course: Patient back to baseline. Still without complaint. Discussed with family and patient at this point there is nothing else emergently we could test to further figure out what this possibly could be. Recommended neurology for MRI and EEG and possibly sleep study. Has appointment this week with Mercedes . 02/28 18:37 Order name: Acetaminophen; Complete Time: 19:02/28 18:37 Order name: Basic Metabolic Panel; Complete Time: 19:02/28 18:37 Order name: CBC with Diff; Complete Time: 19:02/28 18:37 Order name: ETOH Level; Complete Time: 19:02/28 18:37 Order name: Hepatic Function; Complete Time: :02/28 18:37 Order name: PT-INR; Complete Time: 19:18 02/28 18:37 Order name: Ptt, Activated; Complete Time: 19:02/28 18:37 Order name: Salicylate; Complete Time: 19:26 02/28 18:37 Order name: Urine Drug Screen; Complete Time: 20:21 02/28 18:38 Order name: CT Head Brain wo Cont; Complete Time: 19:23 02/28 18:38 Order name: Osmolality, Serum; Complete Time: 19:23 02/28 20:08 Order name: Urine Dipstick--Ancillary (enter results); Complete Time: 20:21 cm6 02/28 20:08 Order name: Urine --Ancillary (enter results); Complete Time: 20:21 cm6 02/28 18:37 Order name: EKG; Complete Time: 18:38 02/28 18:37 Order name: EKG - Nurse/Tech; Complete Time: 18:56 02/28 18:37 Order name: IV Saline Lock; Complete Time: 18:56 02/28 18:37 Order name: Labs collected and sent; Complete Time: 18:56 Administered Medications: No medications were administered Point of Care Testing: Blood Glucose: 18: Blood Glucose: 137 mg/dL; ss Ranges: Critical Glucose Levels:Adult <50 mg/dl or >400 mg/dl <40 mg/dl or >180 mg/dl Disposition: 02/28/19 20:29 Discharged to Home. Impression: Altered mental status, unspecified. - Condition is Stable. - Discharge Instructions: Confusion, Nonepileptic Seizures. - Medication Reconciliation Form, Thank You Letter, Antibiotic Education, Prescription Opioid Use form. - Follow up: Taras Long MD; When: 2 - 3 days; Reason: Recheck today's complaints, Continuance of care, Re-evaluation by your physician. - Problem is new. - Symptoms have improved. Addendum: 03/02/2019 08:09 Co-signature as Attending Physician, Gregory James MD Available for consultation at p s1 all times. . Signatures: Dispatcher [employer] Maria Luisa Wiggins RN RN ss Augie Bates PA PA jr8 Tarah Olea RN RN tl1 Gregory James MD MD ps1 Corrections: (The following items were deleted from the chart) 02/28 20:05 20:02 URINE DIPSTICK--ANCILLARY+U.LAB.BRZ ordered. EDNJ EDMS 20:37 20:29 02/28/2019 20:29 Discharged to Home. Impression: Altered mental status, tl1 unspecified. Condition is Stable. Forms are Medication Reconciliation Form, Thank You Letter, Antibiotic Education, Prescription Opioid Use. Follow up: Taras Long; When: 2 - 3 days; Reason: Recheck today's complaints, Continuance of care, Re-evaluation by your physician. Problem is new. Symptoms have improved. jr8
--- NOTE | 2019-03-02 05:55 | EKG ---
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
== END 2019-02-28 20:37 | disposition home or self-care (01) ==
LOC: ER 18:09
DX: R41.82 Altered mental status, unspecified (principal)
CPT/HCPCS: 36415; 70450; 80048; 80076; 80307; 80320; 80329; 81003; 81025; 82962; 83930; 85025; 85610; 85730; 93005; 99285

== ENCOUNTER 2019-06-01 20:22 | Emergency (ER) | payer BC ==
[2019-06-01] MEDS ORDERED: ONDANSETRON 4 MG (ODT) TAB ONE ×2 (22:23→22:25)
[2019-06-01] MEDS ORDERED: MORPHINE 4 MG/ML SYR ONE (22:23)
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
--- NOTE | 2019-06-01 23:25 | ER ---
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 Transition of care: patient was not received from another setting of care. Mechanism of Injury: resulted from impacting a hard surface, beach sand. Onset of symptoms was June 01, 2019 at 19:30. Risk Assessment: Do you want to hurt yourself or someone else? Patient reports no desire to harm self or others. Initial Sepsis Screen: Does the patient meet any 2 criteria? No. Patient's initial sepsis screen is negative. Does the patient have a suspected source of infection? No. Patient's initial sepsis screen is negative. Care prior to arrival: None. 20:34 Method Of Arrival: Wheelchair lp1 20:34 Acuity: CAROL 3 lp1 Triage Assessment: 22:27 General: Behavior is. ca1 22:27 Neuro: Reports. 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 - Social history:: Smoking status: Patient uses tobacco products, denies chronic smoking, but will smoke occasionally. - Ebola Screening: : No symptoms or risks identified at this time. Screenin:39 Abuse screen: Denies threats or abuse. Denies injuries from another. Nutritional lp1 screening: No deficits noted. Tuberculosis screening: No symptoms or risk factors identified. Fall Risk None identified. Assessment: 20:45 General: Appears in no apparent distress. uncomfortable. Pain: Complains of pain in ca1 neck and top of head Pain does not radiate. Pain currently is 10 out of 10 on a pain scale. Quality of pain is described as shooting, Pain began 2 hours ago. Is continuous. Neuro: Level of Consciousness is awake, alert, obeys commands, Oriented to person, place, time, situation. Cardiovascular: Heart tones S1 S2 present Capillary refill < 3 seconds Patient's skin is warm and dry. Respiratory: Airway is patent Respiratory effort is even, unlabored, Respiratory pattern is regular, symmetrical, Breath sounds are clear bilaterally. GI: Abdomen is flat, non-distended, Bowel sounds present X 4 quads. : No deficits noted. No signs and/or symptoms were reported regarding the genitourinary system. EENT: No deficits noted. No signs and/or symptoms were reported regarding the EENT system. Derm: Skin is intact, is healthy with good turgor, Skin is pink, warm \\T\\ dry. Musculoskeletal: Circulation, motion, and sensation intact. Capillary refill < 3 seconds, Range of motion: intact in all extremities. 21:42 Reassessment: Patient appears in no apparent distress at this time. Patient and/or ca1 family updated on plan of care and expected duration. Pain level reassessed. Patient is alert, oriented x 3, equal unlabored respirations, skin warm/dry/pink. 22:26 Reassessment: Patient appears in no apparent distress at this time. Patient and/or ca1 family updated on plan of care and expected duration. Pain level reassessed. Patient is alert, oriented x 3, equal unlabored respirations, skin warm/dry/pink. 23:30 Reassessment: Patient appears in no apparent distress at this time. Patient is alert, ca1 oriented x 3, equal unlabored respirations, skin warm/dry/pink. Pt still with C-collar. Emphasized importance of maintaining cervical spine immobility. Verbalized understanding. 23:55 Reassessment: ASHLYN Wiseman and JOSE Perez at pt's bedside to emphasize importance of ca1 transfer to a higher facility for further management and stressed the health risk of going home. Pt refused transfer and states, "I'd like to go home tonight. I think this is just the previous injury that I had. I will have this checked tomorrow and have an MRI as you suggest. But for now, I'd like to go home.". 06/02 00:03 Reassessment: ASHLYN Wiseman at bedside, reiterating risks of going home, importance of ca1 being transferred. Vital Signs: 06/01 20:39 BP 173 / 103; Pulse 75; Resp 18; Temp 98.6; Pulse Ox 100% on R/A; Weight 92.99 kg (R); lp1 Height 5 ft. 8 in. (172.72 cm); Pain 8/10; 21:41 BP 149 / 91; Pulse 64; Resp 17 S; Pulse Ox 100% on R/A; ca1 22:26 BP 134 / 83; Pulse 70; Resp 17 S; Pulse Ox 100% on R/A; ca1 23:30 BP 143 / 83; Pulse 81; Resp 17 S; Temp 98.4(O); Pulse Ox 100% on R/A; ca1 20:39 Body Mass Index 31.17 (92.99 kg, 172.72 cm) lp1 Hortencia Coma Score: 20:34 Eye Response: spontaneous(4). Verbal Response: oriented(5). Motor Response: obeys lp1 commands(6). Total: 15. 20:54 Eye Response: spontaneous(4). Verbal Response: oriented(5). Motor Response: obeys pm1 commands(6). Total: 15. ED Course: 20:32 Patient arrived in ED. es 20:32 Ryder Scott MD is Private Physician. es 20:37 Triage completed. lp1 20:38 Arm band placed on right wrist. lp1 20:43 Bowen Yu NP is PHCP. pm1 20:43 Andrae Edwards MD is Attending Physician. pm1 20:44 Ana Lamar RN is Primary Nurse. ca1 20:45 Placed in gown. Bed in low position. Call light in reach. Side rails up X 1. Side rails jp3 up X2. Warm blanket given. Verbal reassurance given. 20:45 Pulse ox on. NIBP on. jp3 20:50 Sole cervical collar applied and checked by physician. jp3 21:20 CT completed. Patient tolerated procedure well. Patient moved to CT via wheelchair. Patient moved back from CT. 21:29 CT Head C Spine In Process Unspecified. EDMS 23:39 Ana Lamar, JOSE is Primary Nurse. ca1 06/02 00:05 No provider procedures requiring assistance completed. Patient did not have IV access ca1 during this emergency room visit. Administered Medications: 06/01 22:06 Drug: Zofran 4 mg Route: PO; ca1 06/02 00:09 Follow up: Response: No adverse reaction; Nausea is decreased ca1 06/01 22:15 Drug: morphine 4 mg Route: IM; Site: left deltoid; ca1 06/02 00:09 Follow up: Response: No adverse reaction; Pain is decreased ca1 06/01 23:53 CANCELLED (Patient Refused; refused IV, ): Decadron - Dexamethasone 10 mg IVP once ca1 23:54 Drug: Decadron 10 mg Route: IM; Site: right gluteus; ca1 06/02 00:08 Follow up: Response: Medication administered at discharge. ca1 Outcome: 06/01 23:24 ER care complete, transfer ordered by . pm1 06/02 00:05 AMA AMA form signed ca1 Condition: stable 00:05 Instructed on the need for transfer, Keeping C-collar in place and need to see a ca1 Neurologist CHERIE 00:12 Patient left the ED. ca1 Signatures: Dispatcher [employer] Sandy Calixto Ervin eh Pena, Laura, RN RN lp1 Bowen Yu NP RN [employer] pm1 Luis Patrick jp3 Ana Lamar RN RN ca1 Corrections: (The following items were deleted from the chart) 00:06 00:05 Instructed on the need for admit, ca1 ca1
[2019-06-02] MEDS ORDERED: dexAMETHasone 10 MG/ML VIAL ONE (00:06)
--- NOTE | 2019-06-02 10:57 | RAD REPORT ---
EXAM DESCRIPTION: CT - Head C Spine Mpr Wo Con - 06/01/2019 9:29 pm CLINICAL HISTORY: 43-year-old female with pain COMPARISON: None. TECHNIQUE: CT brain without contrast. This exam was performed according to our departmental dose opt imization program which includes use of automated exposure control, adjustment of the mA and/or kV ac cording to patient size and/or use of iterative reconstruction technique. FINDINGS: The ventricles, sulci, and cisterns are symmetric and unremarkable. The tovar-white matte r differentiation is preserved. There is no mass effect, midline shift, intra- or extra-axial fluid collection/acute hemorrhage. The osseous structures are unremarkable. The paranasal sinuses and mastoid air cells are clear. IMPRESSION: No acute intracranial abnormalities. TECHNIQUE: Cervical spine CT was performed without contrast. Multiplanar reformatted images were pro vided. This exam was performed according to our departmental dose optimization program which includes use of automated exposure control, adjustment of the mA and/or kV according to patient size and/or u se of iterative reconstruction technique. COMPARISON: None. FINDINGS: There is normal alignment of the cervical spine without fracture or subluxation. The facet s are normal in alignment bilaterally. The posterior elements including the spinous processes are int act. Straightening of the cervical spine which may be secondary to positioning for the examination. Small LEFT paracentral disk herniation present at C5-6 extending into the central spinal canal by kelby roximately 4 mm. Morphology and attenuation of the vertebral bodies and intervertebral disk spaces is otherwise within normal limits. Irregular morphology of the C1 arch and body of C2, otherwise within normal limits of alignment, may reflect sequela of congenital variation or prior trauma. The pre-and paravertebral soft tissues are w ithin normal limits. IMPRESSION: 1. Straightening of the cervical spine which may be secondary to positioning for the exa mination versus spasm. 2. No fracture or acute subluxation. 3. Small LEFT paracentral disk herniation present at C5-6 extending into the central spinal canal by approximately 4 mm. If the patient's symptoms persist, further evaluation with MRI may be considered. Electronically signed by: Ailyn Easley MD 06/01/2019 10:35 PM CDT Due to temporary technical issues with the PACS/Fluency reporting system, reports are being signed by the in house radiologist as a courtesy to ensure prompt reporting. The interpreting radiologist is f ully responsible for the content of the report.
== END 2019-06-02 00:12 | disposition left against medical advice (07) ==
LOC: ER 20:22
DX: M50.222 Other cervical disc displacement at C5-C6 level (principal); F41.9 Anxiety disorder, unspecified; F32.9 Major depressive disorder, single episode, unspecified; Z72.0 Tobacco use; Z53.29 Procedure and treatment not carried out because of patient's decision for other reasons
CPT/HCPCS: 70450; 72125; 96372; 99284